=== PATIENT | female | born 1955 | race Caucasian/White ===

== ENCOUNTER 2018-08-17 11:00 | Day surgery (SDC) | payer MEDICARE, MEDICAID ==
[2018-08-14 11:21] LABS: ALANINE AMINOTRANSFERASE 21 U/L (12-78); ALBUMIN 3.9 g/dL (3.4-5.0); ANION GAP 11 mmol/L (5-15); CALCIUM 8.8 mg/dL (8.5-10.1); CHLORIDE 98 mmol/L (98-107); CREATININE 1.04 mg/dL (0.55-1.02)
[2018-08-14 11:22] LABS: ALKALINE PHOSPHATASE 44 U/L (45-117); BILIRUBIN,TOTAL 0.3 mg/dL (0.2-1.0)
[2018-08-14 11:46] LABS: EOSINOPHILS % (AUTO) 0 % (1-7); LYMPHOCYTES % (AUTO) 30 % (22-44); MEAN CORPUSCULAR HGB CONC 34.3 g/dL (32.4-35.8); MEAN CORPUSCULAR VOLUME 93.3 fL (80-100); MEAN PLATELET VOLUME 7.6 fL (7.4-10.4); MONOCYTES % (AUTO) 7 % (2-9); NEUTROPHILS % (AUTO) 63 % (42-75); PLATELET COUNT 175 x10^3/uL (130-400); RED BLOOD COUNT 4.27 x10^6/uL (3.82-5.3)
[2018-08-14 11:47] LABS: BASOPHILS # (AUTO) 0.02 x10^3/uL (0-0.1); BASOPHILS % (AUTO) 0 % (0-1); EOSINOPHILS # (AUTO) 0.01 x10^3/uL (0-0.4); LYMPHOCYTES # (AUTO) 2.14 x10^3/uL (1-3.4); MD NO; MONOCYTES # (AUTO) 0.51 x10^3/uL (0.2-0.8); NEUTROPHILS # (AUTO) 4.46 x10^3/uL (1.8-6.8)
[2018-08-14 12:56] LABS: INTERNATIONAL NORMALIZED RATIO 1.03 (0.93-1.1); PROTHROMBIN TIME 10.7 Seconds (9.6-11.5)
[~2018-08-17] VITALS: Ht 165.1 cm; Wt 73.6 kg
[~2018-08-17 11:00] MED LIST: ALEN70TA5 PO; BUTA1CAP30 PO; CHOL100015 PO; CLON1TAB4 PO; LEVO75TA PO; LOSA1TAB25 PO; METHADONE PO-COUM; OMEP-110 PO; PROM25TA10 PO; RISP4TAB2 PO; TOLT2TAB4 PO
[2018-08-17 11:44] VITALS: BP 127/83
[2018-08-17] MEDS ORDERED: LACTATED RINGERS 1,000 ML IV SCH (11:46)
[2018-08-17] MEDS ORDERED: LIDOCAINE-MPF 1%, 2ML INFIL ONE (12:00)
[2018-08-17] MEDS ORDERED: ACETAMINOPHEN 500 MG TABLET PO ONE (12:00)
[2018-08-17] MEDS ORDERED: ONDANSETRON ODT 8 MG PO ONE (12:00)
[2018-08-17] MEDS ORDERED: FENTANYL PF 100 MCG/2ML ONE ×3 (13:05→14:44)
[2018-08-17] MEDS ORDERED: MIDAZOLAM 1 MG/ML, 2ML ONE (13:06)
[2018-08-17] MEDS ORDERED: LABETALOL 5MG/ML, 20ML IV PRN (13:30)
[2018-08-17] MEDS ORDERED: DIPHENHYDRAMINE 50 MG/ML, 1ML IVPush PRN (13:30)
[2018-08-17] MEDS ORDERED: hydrALAzine 20 MG/ML, 1ML IV PRN (13:30)
[2018-08-17] MEDS ORDERED: PROCHLORPERAZINE 5 MG/ML, 2ML IV PRN (13:30)
[2018-08-17] MEDS ORDERED: MEPERIDINE/PF 25MG/0.5ML IVPush PRN (13:30)
[2018-08-17] MEDS ORDERED: METOPROLOL 1 MG/ML, 5ML IV PRN (13:30)
[2018-08-17] MEDS ORDERED: ALBUTEROL SULFATE 2.5 MG/3 ML NPPB PRN (13:30)
[2018-08-17] MEDS ORDERED: MIDAZOLAM 1 MG/ML, 2ML IV PRN (13:30)
[2018-08-17] MEDS ORDERED: LORazepam 2 MG/ML, 1ML IVPush PRN (13:30)
[2018-08-17] MEDS ORDERED: MORPHINE SULFATE 4 MG/ML, 1ML IVPush PRN (13:30)
[2018-08-17] MEDS ORDERED: DIAZEPAM 5 MG/ML, 2ML IVPush PRN (13:30)
[2018-08-17] MEDS ORDERED: HYDROmorphone 1 MG/ML, 1ML IV PRN (13:30)
[2018-08-17] MEDS ORDERED: EPHEDRINE 50 MG/ML, 1ML IVPush PRN (13:30)
[2018-08-17] MEDS ORDERED: OXYcodone 5 MG/5 ML ORAL.SOL UDC PO PRN (13:30)
[2018-08-17] MEDS ORDERED: KETOROLAC 30 MG/1 ML IV PRN (13:30)
[2018-08-17] MEDS ORDERED: BUPIVACAINE/PF-EPI 0.5% 1:200K ONE (13:56)
[2018-08-17] MEDS ORDERED: LABETALOL 5MG/ML, 20ML ONE (14:15)
[2018-08-17] MEDS ORDERED: hydrALAzine 20 MG/ML, 1ML ONE (14:27)
[2018-08-17] MEDS ORDERED: OXYcodone 5 MG/5 ML ORAL.SOL UDC ONE ×2 (14:29→14:31)
[2018-08-17] MEDS: FENTANYL PF 100 MCG/2ML IV PRN ×4 (14:34→14:52)
[2018-08-17] MEDS ORDERED: PROPOFOL 10 MG/ML, 20ML ONE (15:58)
[2018-08-17] MEDS ORDERED: SUCCINYLCHOLINE 20 MG/ML, 10ML ONE (15:58)
[2018-08-17] MEDS ORDERED: CEFAZOLIN 1,000 MG ONE (15:58)
== END 2018-08-17 16:50 | disposition home or self-care (01) ==
LOC: OUT 11:00
PROVIDERS: ATTEND Specialist
DX: N90.3 Dysplasia of vulva, unspecified (principal); E66.01 Morbid (severe) obesity due to excess calories; E03.9 Hypothyroidism, unspecified; I10 Essential (primary) hypertension; K21.9 Gastro-esophageal reflux disease without esophagitis; J44.9 Chronic obstructive pulmonary disease, unspecified; F17.210 Nicotine dependence, cigarettes, uncomplicated; Z86.19 Personal history of other infectious and parasitic diseases
CPT/HCPCS: 36415; 56805; 80053; 85025; 85610; 85730; 88305; 93005; J0330; J0690; J2250; J2704; J3010; J3490; J7120; Q0162

== ENCOUNTER 2020-03-23 05:35 | Inpatient (IN) | payer MEDICARE, MEDICAID ==
[2020-03-21 15:19] LABS: ALBUMIN 3.8 g/dL (3.4-5.0); ANION GAP 10 mmol/L (5-15); CALCIUM 9.7 mg/dL (8.5-10.1); CHLORIDE 96 mmol/L (98-107)
[2020-03-21 15:22] LABS: ALANINE AMINOTRANSFERASE 17 U/L (12-78); ALKALINE PHOSPHATASE 80 U/L (45-117); BILIRUBIN,TOTAL 0.7 mg/dL (0.2-1.0); CREATININE 0.94 mg/dL (0.55-1.02)
[2020-03-21 15:51] LABS: INTERNATIONAL NORMALIZED RATIO 0.96 (0.93-1.1); PROTHROMBIN TIME 10.2 Seconds (9.6-11.5)
[2020-03-21 18:39] LABS: BASOPHILS # (AUTO) 0.11 x10^3/uL (0-0.1); BASOPHILS % (AUTO) 1 % (0-1); EOSINOPHILS # (AUTO) 0.07 x10^3/uL (0-0.4); EOSINOPHILS % (AUTO) 1 % (1-7); LYMPHOCYTES # (AUTO) 1.59 x10^3/uL (1-3.4); LYMPHOCYTES % (AUTO) 15 % (22-44); MD MORPH REVIEW ONLY; MEAN CORPUSCULAR HEMOGLOBIN 29.9 pg (27.0-34.8); MEAN CORPUSCULAR HGB CONC 33.5 g/dL (32.4-35.8); MEAN CORPUSCULAR VOLUME 89.4 fL (80-100); MONOCYTES # (AUTO) 0.52 x10^3/uL (0.2-0.8); MONOCYTES % (AUTO) 5 % (2-9); NEUTROPHILS # (AUTO) 8.27 x10^3/uL (1.8-6.8); NEUTROPHILS % (AUTO) 78 % (42-75); PLATELET COUNT 175 x10^3/uL (130-400); RED BLOOD COUNT 4.53 x10^6/uL (3.82-5.3); RED CELL DISTRIBUTION WIDTH 13.7 % (9.6-15.2)
[2020-03-21 18:42] LABS: <PLATELET ESTIMATE> ADEQUATE; <RBC MORPHOLOGY> NORMAL; LARGE PLATELETS 1+
[2020-03-21 18:55] LABS: HCT (SEDRATE) 40.5 % (34.6-47.8)
[~2020-03-23] VITALS: Ht 162.6 cm; Wt 67.8 kg
[~2020-03-23 05:35] MED LIST changes: -ALEN70TA5 PO; +ALEN70TA6 PO; +ATOR20TA37 PO; +CLON1TAB11 PO; -CLON1TAB4 PO; +GABA100C PO; +LOSA1TAB22 PO; +OXYC5CAP2 PO; +RISP2TAB3 PO; +methadone PO
[2020-03-23] MEDS ORDERED: VANCOMYCIN PMX 1GM/200ML 200 ML IV STA (05:57)
[2020-03-23] MEDS ORDERED: LACTATED RINGERS 1,000 ML IV SCH (06:05)
[2020-03-23] MEDS ORDERED: CHLORHEXIDINE 15 ML UDC MM ONE (06:30)
[2020-03-23 06:57] LABS: ALANINE AMINOTRANSFERASE 18 U/L (12-78); ALBUMIN 3.6 g/dL (3.4-5.0); ANION GAP 9 mmol/L (5-15); CALCIUM 9.2 mg/dL (8.5-10.1); CHLORIDE 101 mmol/L (98-107); CREATININE 0.84 mg/dL (0.55-1.02)
[2020-03-23] MEDS ORDERED: FENTANYL PF 250 MCG/5ML ONE ×2 (06:57→10:03)
[2020-03-23] MEDS ORDERED: PROPOFOL 100 ML ONE (06:57)
[2020-03-23] MEDS ORDERED: PROPOFOL 10 MG/ML, 20ML ONE ×2 (06:57→10:02)
[2020-03-23] MEDS ORDERED: BUPIVACAINE/PF-EPI 0.5% 1:200K ONE (06:59)
[2020-03-23] MEDS ORDERED: BACITRACIN 50,000 UNIT ONE (06:59)
[2020-03-23] MEDS ORDERED: VANCOMYCIN 1,000 MG ONE (06:59)
[2020-03-23] MEDS ORDERED: TRANEXAMIC ACID 100 MG/ML, 10ML ONE ×2 (06:59)
[2020-03-23] MEDS ORDERED: THROMBIN 20,000 UNIT VIAL TP ONE (06:59)
[2020-03-23 07:00] LABS: ALKALINE PHOSPHATASE 72 U/L (45-117); BILIRUBIN,TOTAL 0.4 mg/dL (0.2-1.0); TOTAL PROTEIN 7.8 g/dL (6.4-8.2)
[2020-03-23] MEDS ORDERED: OxyconTIN ER 20 MG TAB.ER PO ONE (07:00)
[2020-03-23] MEDS ORDERED: FAMOTIDINE 20 MG TABLET PO ONE (07:00)
[2020-03-23] MEDS ORDERED: GABAPENTIN 300 MG CAPSULE PO ONE (07:00)
[2020-03-23] MEDS ORDERED: ACETAMINOPHEN 500 MG TABLET PO ONE (07:00)
[2020-03-23] MEDS ORDERED: CEFAZOLIN 1,000 MG ONE (07:02)
[2020-03-23] MEDS ORDERED: ROCURONIUM 10 MG/ML,10ML ONE (07:35)
[2020-03-23] MEDS ORDERED: DEXAMETHASONE 4 MG/ML, 1ML ONE (07:35)
[2020-03-23] MEDS ORDERED: EPHEDRINE 50 MG/ML, 1ML ONE (08:09)
[2020-03-23] MEDS ORDERED: VANCOMYCIN 1,000 MG IM ONE (08:45)
[2020-03-23] MEDS ORDERED: hydrALAzine 20 MG/ML, 1ML ONE (09:59)
[2020-03-23] MEDS ORDERED: SUCCINYLCHOLINE 20 MG/ML, 10ML ONE (10:02)
[2020-03-23] MEDS ORDERED: ONDANSETRON 2MG/ML, 2ML IV PRN (10:30)
[2020-03-23] MEDS ORDERED: PROMETHAZINE 25 MG/ML, 1ML IV PRN (10:30)
[2020-03-23] MEDS ORDERED: LABETALOL 5MG/ML, 20ML IV PRN (10:30)
[2020-03-23] MEDS ORDERED: DIAZEPAM 5 MG/ML, 2ML IVPush PRN ×2 (10:30→11:30)
[2020-03-23] MEDS ORDERED: OXYcodone 5 MG/5 ML ORAL.SOL UDC PO PRN (10:30)
[2020-03-23] MEDS ORDERED: hydrALAzine 20 MG/ML, 1ML IV PRN (10:30)
[2020-03-23] MEDS ORDERED: ONDANSETRON 2MG/ML, 2ML ONE (10:34)
[2020-03-23] MEDS ORDERED: FENTANYL PF 100 MCG/2ML ONE (11:07)
[2020-03-23] MEDS ORDERED: HYDROmorphone 2 MG/ML, 1ML ONE (11:08)
[2020-03-23] MEDS ORDERED: SODIUM CHLORIDE 0.9% 1,000 ML IV PRN (11:11)
[2020-03-23] MEDS: FENTANYL PF 100 MCG/2ML IV PRN ×2 (11:21→11:36)
[2020-03-23] MEDS: HYDROmorphone 2 MG/ML, 1ML IVPush PRN ×4 (11:26→11:50)
[2020-03-23] MEDS ORDERED: morphine SULFATE 10 MG/ML, 1ML IVPush PRN (11:30)
[2020-03-23] MEDS ORDERED: DIPHENHYDRAMINE 50 MG/ML, 1ML IM PRN (11:30)
[2020-03-23] MEDS ORDERED: LABETALOL 5MG/ML, 20ML IVPush PRN (11:30)
[2020-03-23] MEDS ORDERED: BISACODYL 10 MG SUPP PR PRN (11:30)
[2020-03-23] MEDS ORDERED: METHADONE INTENSOL 10 MG/ML ORAL CONC PO ONE (11:30)
[2020-03-23] MEDS ORDERED: OXYcodone IR 5MG TABLET PO PRN (11:30)
[2020-03-23] MEDS ORDERED: METHOCARBAMOL 750 MG in DEXTROSE 5% 100 ML IV SCH (11:30)
[2020-03-23] MEDS ORDERED: DIPHENHYDRAMINE 50 MG/ML, 1ML IVPush PRN (11:30)
[2020-03-23] MEDS ORDERED: PROMETHAZINE 25 MG/ML, 1ML IM PRN (11:30)
[2020-03-23] MEDS ORDERED: METHOCARBAMOL 1,000 MG in DEXTROSE 5% 100 ML IV ONE (12:00)
[2020-03-23 12:55] VITALS: BP 119/73
[2020-03-23] MEDS: D5%-0.9% NACL+KCL 20MEQ 1,000 ML IV SCH (15:09)
[2020-03-23] MEDS: CEFAZOLIN PMX 1GM/50ML 50 ML IVPB SCH (15:10)
[2020-03-23] MEDS: GABAPENTIN 100 MG CAPSULE PO SCH ×2 (17:02→21:04)
[2020-03-23 19:37] VITALS: BP 124/73
[2020-03-23] MEDS: METHOCARBAMOL 1,000 MG in DEXTROSE 5% 100 ML IV SCH (19:48)
[2020-03-23] MEDS ORDERED: ZOLPIDEM 5MG TABLET PO PRN (21:00)
[2020-03-23] MEDS: ATORVASTATIN 20 MG TABLET PO SCH (21:04)
[2020-03-23] MEDS: RISPERIDONE 2 MG TABLET PO SCH (21:04)
[2020-03-23] MEDS: LORazepam 1MG TABLET PO PRN (21:46)
[2020-03-23] MEDS: OXYcodone IR 5MG TABLET PO PRN (23:17)
[2020-03-24] MEDS: CEFAZOLIN PMX 1GM/50ML 50 ML IVPB SCH (00:44)
[2020-03-24 01:01] VITALS: BP 120/75
[2020-03-24] MEDS: D5%-0.9% NACL+KCL 20MEQ 1,000 ML IV SCH ×2 (03:47→20:57)
[2020-03-24] MEDS: METHOCARBAMOL 1,000 MG in DEXTROSE 5% 100 ML IV SCH ×3 (03:47→20:59)
[2020-03-24] MEDS: OMEPRAZOLE 20 MG CAPSULE.DR PO SCH (04:51)
[2020-03-24] MEDS: LEVOTHYROXINE 75 MCG TABLET PO SCH (04:52)
[2020-03-24] MEDS: OXYcodone IR 5MG TABLET PO PRN ×4 (04:52→17:11)
[2020-03-24] MEDS ORDERED: METHADONE INTENSOL 10 MG/ML ORAL CONC ONE (04:59)
[2020-03-24 05:45] LABS: BASOPHILS # (AUTO) 0.09 x10^3/uL (0-0.1); BASOPHILS % (AUTO) 1 % (0-1); EOSINOPHILS % (AUTO) 0 % (1-7); LYMPHOCYTES # (AUTO) 1.01 x10^3/uL (1-3.4); LYMPHOCYTES % (AUTO) 10 % (22-44); MD NO; MEAN CORPUSCULAR HEMOGLOBIN 30.1 pg (27.0-34.8); MEAN CORPUSCULAR HGB CONC 33.1 g/dL (32.4-35.8); MEAN CORPUSCULAR VOLUME 90.8 fL (80-100); MEAN PLATELET VOLUME 7.5 fL (7.4-10.4); MONOCYTES # (AUTO) 0.74 x10^3/uL (0.2-0.8); MONOCYTES % (AUTO) 7 % (2-9); NEUTROPHILS % (AUTO) 83 % (42-75); PLATELET COUNT 234 x10^3/uL (130-400); RED BLOOD COUNT 4.52 x10^6/uL (3.82-5.3); RED CELL DISTRIBUTION WIDTH 14.8 % (9.6-15.2)
[2020-03-24] MEDS ORDERED: METHADONE INTENSOL 10 MG/ML ORAL CONC PO SCH ×2 (06:00→09:00)
[2020-03-24 06:36] VITALS: BP 125/76
[2020-03-24] MEDS: HYDROCHLOROTHIAZIDE 25 MG TABLET PO SCH (08:58)
[2020-03-24] MEDS: GABAPENTIN 100 MG CAPSULE PO SCH ×3 (08:58→20:57)
[2020-03-24] MEDS ORDERED: LOSARTAN 100 MG TAB PO SCH (09:00)
[2020-03-24] MEDS ORDERED: OXYcodone 5 MG/5 ML ORAL.SOL UDC ONE (12:38)
[2020-03-24 13:08] VITALS: BP 136/82
[2020-03-24] MEDS: ACETAMINOPHEN 500 MG TABLET PO PRN (17:10)
[2020-03-24 20:32] VITALS: BP 143/80
[2020-03-24] MEDS ORDERED: DEXAMETHASONE 4 MG/ML, 1ML ONE (20:40)
[2020-03-24] MEDS: DEXAMETHASONE 4 MG/ML, 5ML IVPush PRN (20:57)
[2020-03-24] MEDS: ATORVASTATIN 20 MG TABLET PO SCH (20:58)
[2020-03-24] MEDS: RISPERIDONE 2 MG TABLET PO SCH (20:58)
[2020-03-25] VITALS: BP 172/86
[2020-03-25] MEDS: ONDANSETRON 2MG/ML, 2ML IV PRN ×2 (02:22→20:35)
[2020-03-25] MEDS: ACETAMINOPHEN 500 MG TABLET PO PRN (02:22)
[2020-03-25] MEDS: METHOCARBAMOL 1,000 MG in DEXTROSE 5% 100 ML IV SCH (04:46)
[2020-03-25] MEDS: METHADONE INTENSOL 10 MG/ML ORAL CONC PO SCH (04:47)
[2020-03-25 05:42] LABS: MEAN CORPUSCULAR HEMOGLOBIN 30.4 pg (27.0-34.8); MEAN CORPUSCULAR HGB CONC 33.8 g/dL (32.4-35.8); MEAN CORPUSCULAR VOLUME 89.9 fL (80-100); MEAN PLATELET VOLUME 7.6 fL (7.4-10.4); PLATELET COUNT 215 x10^3/uL (130-400); RED BLOOD COUNT 4.65 x10^6/uL (3.82-5.3); RED CELL DISTRIBUTION WIDTH 14.4 % (9.6-15.2)
[2020-03-25 05:59] LABS: BASOPHILS # (AUTO) 0.21 x10^3/uL (0-0.1); BASOPHILS % (AUTO) 2 % (0-1); EOSINOPHILS # (AUTO) 0.03 x10^3/uL (0-0.4); EOSINOPHILS % (AUTO) 0 % (1-7); LYMPHOCYTES # (AUTO) 0.64 x10^3/uL (1-3.4); LYMPHOCYTES % (AUTO) 5 % (22-44); MD SCAN; MONOCYTES # (AUTO) 0.85 x10^3/uL (0.2-0.8); MONOCYTES % (AUTO) 6 % (2-9); NEUTROPHILS # (AUTO) 11.79 x10^3/uL (1.8-6.8); NEUTROPHILS % (AUTO) 87 % (42-75)
[2020-03-25] MEDS: OMEPRAZOLE 20 MG CAPSULE.DR PO SCH (06:13)
[2020-03-25] MEDS: LEVOTHYROXINE 75 MCG TABLET PO SCH (06:13)
[2020-03-25 07:40] VITALS: BP 167/97
[2020-03-25] MEDS: D5%-0.9% NACL+KCL 20MEQ 1,000 ML IV SCH ×2 (08:09→17:33)
[2020-03-25] MEDS: GABAPENTIN 100 MG CAPSULE PO SCH ×3 (08:10→20:35)
[2020-03-25] MEDS: LOSARTAN 50MG TABLET PO SCH (08:10)
[2020-03-25] MEDS: HYDROCHLOROTHIAZIDE 25 MG TABLET PO SCH (08:10)
[2020-03-25] MEDS: OXYcodone IR 5MG TABLET PO PRN ×3 (09:48→17:33)
[2020-03-25] MEDS ORDERED: DEXAMETHASONE 4 MG/ML, 1ML ONE (10:20)
[2020-03-25] MEDS: DEXAMETHASONE 4 MG/ML, 5ML IVPush PRN (10:28)
[2020-03-25] MEDS ORDERED: METHOCARBAMOL 750 MG TABLET PO PRN (11:30)
[2020-03-25] MEDS: DIAZEPAM 5 MG TABLET PO PRN (12:21)
[2020-03-25 13:44] VITALS: BP 138/77
[2020-03-25 18:37] VITALS: BP 144/77
[2020-03-25] MEDS: RISPERIDONE 2 MG TABLET PO SCH (20:36)
[2020-03-25] MEDS: ATORVASTATIN 20 MG TABLET PO SCH (20:36)
[2020-03-26 00:30] VITALS: BP 135/69
[2020-03-26] MEDS: METHADONE INTENSOL 10 MG/ML ORAL CONC PO SCH ×2 (03:34→09:00)
[2020-03-26] MEDS: D5%-0.9% NACL+KCL 20MEQ 1,000 ML IV SCH ×2 (04:58→15:36)
[2020-03-26 05:10] LABS: BASOPHILS # (AUTO) 0.03 x10^3/uL (0-0.1); BASOPHILS % (AUTO) 0 % (0-1); EOSINOPHILS % (AUTO) 0 % (1-7); LYMPHOCYTES # (AUTO) 1.22 x10^3/uL (1-3.4); LYMPHOCYTES % (AUTO) 11 % (22-44); MD NO; MEAN CORPUSCULAR HEMOGLOBIN 29.8 pg (27.0-34.8); MEAN CORPUSCULAR HGB CONC 32.8 g/dL (32.4-35.8); MEAN CORPUSCULAR VOLUME 90.8 fL (80-100); MEAN PLATELET VOLUME 6.9 fL (7.4-10.4); MONOCYTES # (AUTO) 0.86 x10^3/uL (0.2-0.8); MONOCYTES % (AUTO) 8 % (2-9); NEUTROPHILS # (AUTO) 9.03 x10^3/uL (1.8-6.8); NEUTROPHILS % (AUTO) 81 % (42-75); PLATELET COUNT 177 x10^3/uL (130-400); RED BLOOD COUNT 3.87 x10^6/uL (3.82-5.3); RED CELL DISTRIBUTION WIDTH 14.3 % (9.6-15.2)
[2020-03-26] MEDS: LEVOTHYROXINE 75 MCG TABLET PO SCH (05:59)
[2020-03-26] MEDS: OMEPRAZOLE 20 MG CAPSULE.DR PO SCH (05:59)
[2020-03-26 06:28] VITALS: BP 121/69
[2020-03-26] MEDS: GABAPENTIN 100 MG CAPSULE PO SCH ×3 (09:47→20:28)
[2020-03-26] MEDS: LOSARTAN 50MG TABLET PO SCH (09:47)
[2020-03-26] MEDS: HYDROCHLOROTHIAZIDE 25 MG TABLET PO SCH (09:47)
[2020-03-26 09:48] VITALS: BP 152/73
[2020-03-26] MEDS: LORazepam 1MG TABLET PO PRN ×2 (10:58→19:16)
[2020-03-26] MEDS: MAGNESIUM HYDROXIDE 8%, 30ML UDC PO PRN (10:58)
[2020-03-26 12:02] VITALS: BP_SYST 144; BP_SYST 161; BP_DIAS 85
[2020-03-26] MEDS: OXYcodone IR 5MG TABLET PO PRN ×3 (15:03→23:27)
[2020-03-26 19:42] VITALS: BP 132/73
[2020-03-26] MEDS: ATORVASTATIN 20 MG TABLET PO SCH (20:28)
[2020-03-26] MEDS: RISPERIDONE 2 MG TABLET PO SCH (20:29)
[2020-03-26] MEDS: DIAZEPAM 5 MG TABLET PO PRN (23:28)
[2020-03-27 00:58] VITALS: BP 126/69
[2020-03-27] MEDS: METHADONE INTENSOL 10 MG/ML ORAL CONC PO SCH (04:03)
[2020-03-27] MEDS: D5%-0.9% NACL+KCL 20MEQ 1,000 ML IV SCH (04:05)
[2020-03-27] MEDS: OMEPRAZOLE 20 MG CAPSULE.DR PO SCH (05:19)
[2020-03-27] MEDS: LORazepam 1MG TABLET PO PRN ×2 (05:19→14:36)
[2020-03-27] MEDS: LEVOTHYROXINE 75 MCG TABLET PO SCH (05:19)
[2020-03-27] MEDS: SENNA/DOCUSATE TABLET PO PRN (05:19)
[2020-03-27] MEDS: OXYcodone IR 5MG TABLET PO PRN ×5 (05:19→20:49)
[2020-03-27 06:00] LABS: MEAN CORPUSCULAR HEMOGLOBIN 30.2 pg (27.0-34.8); MEAN CORPUSCULAR HGB CONC 33.6 g/dL (32.4-35.8); MEAN CORPUSCULAR VOLUME 89.9 fL (80-100); MEAN PLATELET VOLUME 7.3 fL (7.4-10.4); PLATELET COUNT 171 x10^3/uL (130-400); RED BLOOD COUNT 3.46 x10^6/uL (3.82-5.3); RED CELL DISTRIBUTION WIDTH 14.9 % (9.6-15.2)
[2020-03-27 06:22] LABS: BASOPHILS # (AUTO) 0.12 x10^3/uL (0-0.1); BASOPHILS % (AUTO) 1 % (0-1); EOSINOPHILS # (AUTO) 0.08 x10^3/uL (0-0.4); EOSINOPHILS % (AUTO) 1 % (1-7); LYMPHOCYTES # (AUTO) 2.25 x10^3/uL (1-3.4); LYMPHOCYTES % (AUTO) 21 % (22-44); MD SCAN; MONOCYTES # (AUTO) 0.74 x10^3/uL (0.2-0.8); MONOCYTES % (AUTO) 7 % (2-9); NEUTROPHILS % (AUTO) 70 % (42-75)
[2020-03-27 06:47] VITALS: BP 144/82
[2020-03-27] MEDS: HYDROCHLOROTHIAZIDE 25 MG TABLET PO SCH (08:26)
[2020-03-27] MEDS: MAGNESIUM HYDROXIDE 8%, 30ML UDC PO PRN (08:26)
[2020-03-27 08:27] VITALS: BP 122/69
[2020-03-27] MEDS: GABAPENTIN 100 MG CAPSULE PO SCH ×3 (08:27→20:49)
[2020-03-27] MEDS: LOSARTAN 50MG TABLET PO SCH (08:27)
[2020-03-27] MEDS ORDERED: D5%-0.9% NACL+KCL 20MEQ 1,000 ML IV PRN (13:00)
[2020-03-27 13:05] VITALS: BP 123/74
[2020-03-27] MEDS: DEXAMETHASONE 4 MG/ML, 1ML IVPush SCH ×2 (14:36→20:48)
[2020-03-27] MEDS: ACETAMINOPHEN 500 MG TABLET PO SCH (14:36)
[2020-03-27 20:32] VITALS: BP 121/74
[2020-03-27] MEDS: KETOROLAC 30 MG/1 ML IVPush PRN (20:48)
[2020-03-27] MEDS: RISPERIDONE 2 MG TABLET PO SCH (20:49)
[2020-03-27] MEDS: ATORVASTATIN 20 MG TABLET PO SCH (20:49)
[2020-03-28] MEDS: LORazepam 1MG TABLET PO PRN ×2 (00:42→08:43)
[2020-03-28] MEDS: ACETAMINOPHEN 500 MG TABLET PO SCH ×3 (00:42→16:27)
[2020-03-28] MEDS: OXYcodone IR 5MG TABLET PO PRN ×5 (00:42→16:26)
[2020-03-28 00:49] VITALS: BP 127/67
[2020-03-28] MEDS: METHADONE INTENSOL 10 MG/ML ORAL CONC PO SCH (04:05)
[2020-03-28] MEDS: DEXAMETHASONE 4 MG/ML, 1ML IVPush SCH ×3 (04:06→16:27)
[2020-03-28] MEDS: KETOROLAC 30 MG/1 ML IVPush PRN (04:06)
[2020-03-28] MEDS: SENNA/DOCUSATE TABLET PO PRN (05:40)
[2020-03-28] MEDS: LEVOTHYROXINE 75 MCG TABLET PO SCH (05:40)
[2020-03-28] MEDS: OMEPRAZOLE 20 MG CAPSULE.DR PO SCH (05:40)
[2020-03-28 05:49] LABS: BASOPHILS # (AUTO) 0.01 x10^3/uL (0-0.1); BASOPHILS % (AUTO) 0 % (0-1); EOSINOPHILS % (AUTO) 0 % (1-7); LYMPHOCYTES # (AUTO) 0.57 x10^3/uL (1-3.4); LYMPHOCYTES % (AUTO) 10 % (22-44); MD NO; MEAN CORPUSCULAR HEMOGLOBIN 30.5 pg (27.0-34.8); MEAN CORPUSCULAR HGB CONC 33.9 g/dL (32.4-35.8); MEAN PLATELET VOLUME 6.9 fL (7.4-10.4); MONOCYTES # (AUTO) 0.16 x10^3/uL (0.2-0.8); MONOCYTES % (AUTO) 3 % (2-9); NEUTROPHILS # (AUTO) 4.72 x10^3/uL (1.8-6.8); NEUTROPHILS % (AUTO) 86 % (42-75); PLATELET COUNT 203 x10^3/uL (130-400); RED BLOOD COUNT 3.88 x10^6/uL (3.82-5.3); RED CELL DISTRIBUTION WIDTH 14.5 % (9.6-15.2)
[2020-03-28 07:17] VITALS: BP 114/74
[2020-03-28] MEDS: HYDROCHLOROTHIAZIDE 25 MG TABLET PO SCH (08:43)
[2020-03-28] MEDS: LOSARTAN 50MG TABLET PO SCH (08:43)
[2020-03-28] MEDS: GABAPENTIN 100 MG CAPSULE PO SCH ×2 (08:43→16:27)
[2020-03-28 13:11] VITALS: BP 114/75
[2020-03-28] MEDS: MAGNESIUM HYDROXIDE 8%, 30ML UDC PO PRN (13:19)
[2020-03-28] MEDS ORDERED: OXYC5CAP2 PO (17:20)
[2020-03-28] MEDS ORDERED: CEPH-368 PO (17:21)
[2020-03-28] MEDS ORDERED: LORA-446 PO (17:21)
== END 2020-03-28 18:34 | disposition home health service (06) | DRG 460 ==
LOC: ORIP 05:35 → 4NE 13:03
PROVIDERS: ADMIT Orthopaedic Surgery Orthopaedic Surgery of the Spine; ATTEND Orthopaedic Surgery Orthopaedic Surgery of the Spine
PROC: 0RB90ZZ Excision of Thoracic Vertebral Disc, Open Approach (ICD-10-PCS; 2020-03-23)
PROC: 01N80ZZ Release Thoracic Nerve, Open Approach (ICD-10-PCS; 2020-03-23)
PROC: 4A11X4G Monitoring of Peripheral Nervous Electrical Activity, Intraoperative, External Approach (ICD-10-PCS; 2020-03-23)
PROC: 0PB40ZZ Excision of Thoracic Vertebra, Open Approach (ICD-10-PCS; 2020-03-23)
PROC: 0RG7071 Fusion of 2 to 7 Thoracic Vertebral Joints with Autologous Tissue Substitute, Posterior Approach, Posterior Column, Open Approach (ICD-10-PCS; principal; 2020-03-23 07:30)
DX: S22.061A Stable burst fracture of T7-T8 vertebra, initial encounter for closed fracture (principal); G99.2 Myelopathy in diseases classified elsewhere; M48.04 Spinal stenosis, thoracic region; M54.14 Radiculopathy, thoracic region; X58.XXXA Exposure to other specified factors, initial encounter; Y93.89 Activity, other specified; Y92.89 Other specified places as the place of occurrence of the external cause; Y99.8 Other external cause status
CPT/HCPCS: 36415; 71046; 72072; 80053; 83036; 85025; 85610; 85651; 85730; 86850; 86900; 93005; 95938; 95941; C1713; G0378; J0690; J1100; J1170; J1885; J2270; J2405; J2550; J2704; J3010; J3370; C1760; C1762; C1763; C9362; J0330; J0360; J2800; J3480; J7120; U0001